=== PATIENT | male | born 1975 | race Caucasian/White ===

== ENCOUNTER 2023-01-24 09:13 | Emergency (ER) | payer BC, SELFPAY ==
[2023-01-24 09:23] VITALS: BP 121/94; PULSE 80; RESP 18; TEMP 36.5; O2SAT 95; BMI 27.3
--- NOTE | 2023-01-24 09:49 | ED.GENADULT ---
HPI - General Adult General Date Seen: 01/24/23 Chief complaint: Back Injury/Pain Stated complaint: Lower back pain Time Seen by Provider: 01/24/23 09:19 Source: patient Mode of arrival: ambulatory Limitations: no limitations History of Present Illness HPI narrative: Patient is a 47-year-old male who says he was tiling a bathroom in his home yesterday. He finished the job, and afterwards developed pain in his right low back. He has had pain like this once before, few years ago. He remembers going to be seen in the ER for that, he says it resolved on its own in a few days. He has never had imaging of his low back. He does not have pain that radiates into his leg but he does have some paresthesias or numbness in his right thigh, does not extend past his knee. He does say that the pain shoots up into his shoulder blade area on the right. He has not had any fevers or weight loss. He does not have any bowel or bladder changes. He has not taken any medications at home. He says he had difficulty sleeping because it hurts to lay down. He has difficulty going from sitting to standing due to pain. No true weakness. Related Data Home Medications Medication Instructions Recorded Confirmed fluticasone propionate 50 1 spray intranasal QDAY PRN 09/23/22 12/13/22 mcg/actuation nasal spray,suspension (Flonase Allergy Relief) Previous Rx's Medication Instructions Recorded fluconazole 100 mg tablet 100 mg PO QDAY #14 tabs 12/13/22 Allergies Allergy/AdvReac Type Severity Reaction Status Date / Time No Known Allergies Allergy Unknown Verified 12/13/22 15:23 Review of Systems Status of ROS: Reports: 6 or more systems reviewed and unremarkable except as noted in History and below [facility] Medical History Allergic rhinitis (07/11/07) Gastroesophageal reflux disease Tobacco abuse Surgical History History of hemorrhoidectomy (2016) History of nasal surgery (2017) Family History Mother Stroke Father High blood pressure Thyroid disease Social History Narrative: , no kids, smoker, social EtOH, construction Smoking Status: Current every day smoker How often do you have a drink containing alcohol: 2-4 times a month AUDIT-C Alcohol total score: 2 Non-prescribed substance use: denies use Little interest or pleasure in doing things: several days Feeling down, depressed, or hopeless: not at all Exam Narrative: Exam Narrative: Vital signs as noted above. In general, an alert, well-appearing patient. Sitting in a wheelchair. Head: Normocephalic, atraumatic. Eyes: Pupils are equal reactive. Extraocular movements are full. Conjunctivae are normal. ENT: Mucous membranes are moist. Throat is normal. Neck: Supple without lymphadenopathy. Heart: Regular rate and rhythm. No murmur or rub. Lungs: Clear bilaterally. No increased work of breathing, crackles or wheezes. Abdomen: Soft and nontender. No organomegaly. Back: Right lumbar tenderness. No erythema or rashes. Flexion significantly limited secondary to concern about pain. Extension to about 10?. Lateral movement preserved. Extremities: Well perfused. No edema. No calf tenderness. Pulses intact. Neurologic: Patient is alert and oriented to person and place. Speech is fluent. Face is symmetric. Moves all extremities equally. Strength is 5 5 in bilateral lower extremities. Sensation is intact to light touch. Affect: Normal. Skin: Warm and dry. Well perfused. Const: Vital Signs, click to edit/add: Vital Signs - 24 hr 01/24/23 09:23 Temperature 97.7 F Pulse Rate [Right Pulse Oximeter] 80 Respiratory Rate 18 Blood Pressure [Ri ght Upper Arm] 121/94 H Pulse Oximetry 95 Oxygen Delivery Me thod Room Air Documenting provider has reviewed patient's vital signs: yes Course Course Hospital Course: At this time, discussed that pain is likely due to muscular spasm, disc herniation not entirely ruled out. He does have some paresthesias in the right thigh although does not have true radicular symptoms. I do not think it is unreasonable to try a little prednisone in addition to ibuprofen/Tylenol and some Flexeril. I would start with conservative measures, and then have him follow up with primary care if not improving. Could consider imaging at that time. I do not see any need for imaging today, no red flags. If he worsens or has significant changes, return to the emergency department. Vital Signs Vital signs: Initial Vital Signs Temperature 97.7 F 01/24/23 09:23 Temperature Source Temporal Artery Scan 01/24/23 09:23 Pulse Rate 80 01/24/23 09:23 Respiratory Rate 18 01/24/23 09:23 Blood Pressure 121/94 H 01/24/23 09:23 Blood Pressure Mean 103 01/24/23 09:23 Blood Pressure Position Sitting 01/24/23 09:23 Pulse Oximetry 95 01/24/23 09:23 Oxygen Delivery Method 01/24/23 09:23 Vital Signs Temperature 97.7 F 01/24/23 09:23 Pulse Rate 80 01/24/23 09:23 Respiratory Rate 18 01/24/23 09:23 Blood Pressure 121/94 H 01/24/23 09:23 Pulse Oximetry 95 01/24/23 09:23 Oxygen Delivery Method 01/24/23 09:23 Temperature 97.7 F 01/24/23 09:23 Pulse Rate 80 01/24/23 09:23 Respiratory Rate 18 01/24/23 09:23 Blood Pressure 121/94 H 01/24/23 09:23 Pulse Oximetry 95 01/24/23 09:23 Oxygen Delivery Method 01/24/23 09:23 Discharge Plan Discharge Clinical Impression: Low back pain Patient Disposition: Home, Self-Care Condition: Stable Instructions: Acute Low Back Pain (ED) Additional Instructions: Ibuprofen 400 mg plus Tylenol 1000 mg 3 times daily with food for the next week or so. Prednisone as follows: 3 tabs daily for 3 days, then 2 tabs daily for 3 days, then 1 tab daily for 3 days. Muscle relaxer as needed. If not improving over the next few days, follow up with Dr. Fay for re-evaluation and possible imaging. Return to the emergency department at any time for acute worsening, severe uncontrolled pain, new symptoms such as weakness, bowel or bladder changes, fever, etc.. Prescriptions: No Action fluticasone propionate [Flonase Allergy Relief] 50 mcg/actuation spray,suspension 1 spray intranasal QDAY PRN Rx Instructions: administer into each nostril fluconazole 100 mg tablet 100 mg PO QDAY Qty: 14 0RF Follow Up/Referrals: Pedro Fay MD [Primary Care Provider] - Stand Alone Forms: [facility] Info Instructions
== END 2023-01-24 09:59 | disposition home or self-care (01) ==
PROVIDERS: Emergency Provider Emergency Medicine; PCP Family Medicine
DX: M54.59 Other low back pain (principal)
CPT/HCPCS: 99283; 99284

== ENCOUNTER 2024-07-19 06:58 | Outpatient (CLI) | payer BC, SELFPAY ==
--- OUTSIDE RECORDS SUMMARY | 2024-07-19 07:01 | XMS_ITS | Clinical Summary ---
Author Organization [facility] Address [place], [place] [address] Care Team Providers Care Acetone Recovery Worker Name Role Phone Pedro Fay MD Primary Care Provider + Allergies Active Allergy Reactions Criticality Noted Date Comments Homeopathic Products 03/08/2007 Medications Medication Sig Dispensed Refills Start Date End Date Status loratadine (CLARITIN ORAL) Take by mouth. Active azithromycin (ZITHROMAX Z-SHANNON) 250 mg tabletIndications:Nasal congestion Take 500 mg (2 tabs) by mouth on day 1, then 250 mg (1 tab) daily for days 2-5. 6 tablet 12/28/2019 Active ondansetron (ZOFRAN ODT) 8 mg disintegrating tabletIndications:Nause a Place 1 Tablet (8 mg) on the tongue every 8 hours if needed for Nausea/Vomiting . 15 Tablet 02/17/2022 Active omeprazole 20 mg tabletIndications:Gastr itis, presence of bleeding unspecified, unspecified chronicity, unspecified gastritis type Take 1 Tablet (20 mg) by mouth once daily before a meal. 50 Tablet 02/17/2022 Active ibuprofen (ADVIL; MOTRIN) 600 mg tabletIndications:Sprai n of right ankle, unspecified ligament, initial encounter,Acute right ankle pain Take 1 Tablet (600 mg) by mouth every 6 hours if needed for Pain. Maximum of 3200 mg in 24 hours. 25 Tablet 03/23/2024 Active Active Problems Problem Noted Date Diagnosed Date Allergic rhinitis, cause unspecified 07/11/2007 Acute serous otitis media 03/08/2007 Tobacco use disorder 03/08/2007 Immunizations Name Administration Dates Next Due COVID-19 vaccine (Lumexis 30mcg/0.3mL) CHATO Hilliard 03/04/2021 Tdap 12/31/2015 Family History Medical History Relation Name Comments Hypertension Father Good Health Mother Relation Name Status Comments Father Alive Mother Alive Social History Tobacco Use Types Packs/Day Years Used Date Smoking Tobacco: Every Day Cigarettes 1 7.8 Started: 09/14/2016 Smokeless Tobacco: Former Quit: 10/17/2016 Tobacco Cessation:Ready to Q uit: No; Counseling Given: Yes Comments:5 cigs per day Alcohol Use Standard Drinks/Week Comments Yes 0 (1 standard drink = 0.6 oz pur e alcohol) 1 per day Sex and Gender Information Value Date Recorded Sex Assigned at Not on file Gender Identity Not on file Sexual Orientation Not on file Obstetrics History Last Filed Vital Signs Vital Sign Reading Time Taken Comments Blood Pressure 134/91 03/23/2024 10:30 PM CDT Pulse 84 03/23/2024 10:45 PM CDT Temperature 36.7 ??C (98.1 ??F) 03/23/2024 9:56 PM CD T Respiratory Rate 16 03/23/2024 9:56 PM CDT Oxygen Saturation 94% 03/23/2024 10:45 PM CDT Inhaled Oxygen Concentration - - Weight 83.9 kg (185 lb) 03/23/2024 9:54 PM CDT Height 177.8 cm (5' 10) 03/23/2024 9:54 PM CDT Body Mass Index 26.54 03/23/2024 9:54 PM CDT Plan of Treatment Health Maintenance Due Date Last Done Comments Depression screening for age 12+ 1987 Hepatitis C screening for ag e 18-79 1993 Colonoscopy through age 75 2020 Lipids for age 45-75 2020 BMI (ht and wt on same day) for age 18+ 02/17/2023 02/17/2022, 08/29/2018, 09/01/2016 COVID-19 vaccine series ( season) 2024 06/05/2021, 03/04/2021 Influenza for age 9-49 07/15/2024 Tetanus booster 12/31/2025 12/31/2015 HIV for age 15-65 Completed 05/06/2014 Tdap Completed 12/31/2015 Pneumococcal series for age 6-64 Aged Out No longer eligible b ased on patient's age to complete this topic Procedures Procedure Name Priority Date/Time Associated Diagnosis Comments ANTI HIV 1/2 Routine 05/06/2014 3:55 PM CDT Exposure to STD from Last 3 Months or Most Recently Relevant to Health Maintenance Results * ANTI HIV 1/2 (05/06/2014 3:55 PM CDT) HIV-1/HIV-2 ANTIBODY Non-Reacti ve Non-Reacti ve 05/07/2014 5:17 PM CDT [facility] Blood specimen (specimen) BLOOD SPECIMEN / Unknown Venipuncture / Unknown 05/06/2014 3:55 PM CDT 05/06/2014 3:56 PM CDT Narrative [facility] - 05/07/2014 5:17 PM CDT HIV-1 p24 and HIV-1/HIV-2 Ab not detected Alex Yancey MD [facility] [address] [place] [address], from Last 3 Months or Most Recently Relevant to Health Maintenance Advance Directives * Full Code (Latest Code Status on File) Date Activated Date Inactivated Comments 10/21/2016 9:12 AM 10/21/2016 2:12 PM * Full Code Date Activated Date Inactivated Comments 10/21/2016 6:22 AM 10/21/2016 9:12 AM Care Teams Acetone Recovery Worker Relationship Specialty Start Date End Date Pedro Fay MD [address] [place] [id number] PCP - General Family Practice 02/19/22
--- NOTE | 2024-07-19 07:15 | CRLHL7_ITS ---
For Patients: As a result of the Cures Act, medical imaging exams and procedure reports are released immediately into your electronic medical record. You may view this report before your referring provider. If you have questions, please contact your health care provider. INDICATION: Low back pain. TECHNIQUE: Noncontrast sagittal and axial T1, T2, and sagittal STIR sequences are provided. Compared to prior study from April 15, 2023. FINDINGS: The overall stature, alignment and intrinsic marrow signal of the lumbar spine is within normal limits. Conus is normal. L1-2, L2-3: Unremarkable. L3-4, L4-5: Stable minimal broad-based posterior disc bulge results in no central canal or foraminal narrowing. L5-S1 worsening left posterior paracentral disc protrusion now extends 4-5 millimeters beyond the posterior vertebral body margin resulting in greater compression of the traversing left S1 nerve root. No central canal or foraminal narrowing. IMPRESSION: 1. Worsening left posterior paracentral disc protrusion at L5-S1 resulting in greater compression of the traversing left S1 nerve root. 2. Milder degenerative changes within the remainder of the lumbar spine as outlined above. Dictated by Jasvir No MD @ 07/19/2024 2:48:29 PM (Electronically Signed)
== END 2024-07-19 06:59 | disposition home or self-care (01) ==
LOC: MRI 06:59
PROVIDERS: PCP Family Medicine; Visit Provider Family Medicine
DX: M54.50 Low back pain, unspecified (principal); M51.27 Other intervertebral disc displacement, lumbosacral region; M54.16 Radiculopathy, lumbar region
CPT/HCPCS: 72148

== ENCOUNTER 2024-09-17 10:59 | Outpatient (CLI) | payer BC, SELFPAY ==
--- OUTSIDE RECORDS SUMMARY | 2024-09-17 11:04 | XMS_ITS | Clinical Summary ---
Author Organization [facility] [employer] [facility] Address [place], [place] [address] Care Team Providers Care Gate Operator Name Role Phone Pedro Fay MD Primary Care Provider + Allergies Active Allergy Reactions Criticality Noted Date Comments Homeopathic Products 03/08/2007 Medications Medication Sig Dispensed Refills Start Date End Date Status loratadine (CLARITIN ORAL) Take by mouth. Active ibuprofen (ADVIL; MOTRIN) 600 mg tabletIndications:Spr ain of right ankle, unspecified ligament, initial encounter,Acute right ankle pain Take 1 Tablet (600 mg) by mouth every 6 hours if needed for Pain. Maximum of 3200 mg in 24 hours. 25 Tablet 03/23/2024 Active oxyCODONE (ROXICODONE) 5 mg immediate release tablet Take 5 mg by mouth every 6 hours if needed for Pain. 07/09/2024 Active Active Problems Problem Noted Date Diagnosed Date Allergic rhinitis, cause unspecified 07/11/2007 Acute serous otitis media 03/08/2007 Tobacco use disorder 03/08/2007 Encounters Date Type Department Care Team Description 09/11/2024 11:10 AM CDT Office Visit [facility] [address] [place] [address] Todd Garrido MD Musculoskeletal Problem (Follow-up SP / Done at [facility] 08/09/2024/Done at [facility] 09/04/2024 was last SP) 09/11/2024 Travel 08/22/2024 3:30 PM CDT Ancillary Procedure [facility] [address] [place] [address] 08/22/2024 Travel 2024 Orders Only [facility] [address] [place] [address] Flako Lopes MD <No scans attached> 07/24/2024 1:50 PM CDT Office Visit [facility] [address] [facility] [address] Todd Garrido MD Musculoskeletal Problem (Consultation for Low Back Pain/Referral from [facility]/Injured x 1 1/2 years. Re-injured 07/05/2024) 07/24/2024 Telephone [facility] [address] [place] [address] Mart Keller MD Error-please disregard 07/24/2024 Travel 07/19/2024 Orders Only [facility] Scanner 1 scan: (1-Ord) [facility], MR LUMBAR SPINE WO CON, 07/19/2024 from Last 3 Months Immunizations Name Administration Dates Next Due COVID-19 vaccine (SCL 30mcg/0.3mL) CHATO Hilliard 03/04/2021 Tdap 12/31/2015 Family History Medical History Relation Name Comments Hypertension Father Good Health Mother Relation Name Status Comments Father Alive Mother Alive Social History Tobacco Use Types Packs/Day Years Used Date Smoking Tobacco: Every Day Cigarettes 1 8 Started: 09/14/2016 Smokeless Tobacco: Former Quit: 10/17/2016 [...] Sign Reading Time Taken Comments Blood Pressure 123/84 09/11/2024 11:35 AM CDT Pulse 78 09/11/2024 11:35 AM CDT Temperature 36.7 ??C (98.1 ??F) 03/23/2024 9:56 PM CD T Respiratory Rate 16 03/23/2024 9:56 PM CDT Oxygen Saturation 96% 09/11/2024 11:35 AM CDT Inhaled Oxygen Concentration - - Weight 86.4 kg (190 lb 8 oz) 09/11/2024 11:35 AM CDT Height 177.8 cm (5' 10) 03/23/2024 9:54 PM CDT Body Mass Index 27.33 03/23/2024 9:54 PM CDT Plan of Treatment Health Maintenance Due Date Last Done Comments Pneumococcal series for age 6-64 (1 of 2 - PCV) 1981 Depression screening for age 12+ 1987 Hepatitis C screening for age 18-79 1993 Colonoscopy through age 75 2020 Lipids for age 45-75 2020 BMI (ht and wt on same day) for age 18+ 02/17/2023 02/17/2022, 08/29/2018, 09/01/2016 COVID-19 vaccine series ( season) 2024 06/05/2021, 03/04/2021 Influenza for age 9-49 07/15/2024 Tetanus booster 12/31/2025 12/31/2015 HIV for age 15-65 Completed 05/06/2014 Tdap Completed 12/31/2015 Procedures Procedure Name Priority Date/Time Associated Diagnosis Comments XR SPINE LUMBAR MINIMUM 4 VIEWS Routine 08/22/2024 3:54 PM CDT Pain of lumbar spine SCAN-MRI INTERPRETATION 07/19/20 24 12:00 AM CDT ANTI HIV 1/2 Routine 05/06/2014 3:55 PM CDT Exposure to STD from Last 3 Months or Most Recently Relevant to Health Maintenance Results * XR SPINE LUMBAR MINIMUM 4 VIEWS (08/22/2024 3:54 PM CDT) Anatomical Region Laterality Modality Spine, LUMBAR SPINE Digital Radi ography 08/22/2024 3:54 PM CDT Impressions 08/23/2024 10:10 AM CDT 5 lumbar type vertebrae. 10 degrees of dextrocurvature from L1 to L4. 4.2 mm retrolisthesis of L3 on L4 on neutral, becomes 3.5 mm on extension, becomes 1 mm with flexion. 2 mm retrolisthesis of L4 on L5 on neutral, does not change between flexion and extension. Vertebral body heights are maintained. No pars defects. Mild intervertebral disc height loss and mild facet arthropathy at L4-L5 and L5-S1. Mild endplate spurring throughout the lumbar spine and lower thoracic spine. The visualized bony pelvis grossly within normal limits. Narrative 08/23/2024 10:10 AM CDT For Patients: As a result of the Cures Act, medical imaging exams and procedure reports are released immediately into your electronic medical record. You may view this report before your referring provider. If you have questions, please contact your health care provider. EXAM: XR SPINE LUMBAR MINIMUM 4 VIEWS LOCATION: [facility] DATE: 08/22/2024 INDICATION: Pain Of Lumbar Spine COMPARISON: Lumbar spine MRI 07/19/2024 Procedure Note Hamida Donnelly MD - 08/23/2024 For Patients: As a result of the Cures Act, medical imagingexams and procedure reports are released immediately into your electronicmedical record. You may view this report before your referring provider.If you have questions, please contact your health care provider. EXAM: XR SPINE LUMBAR MINIMUM 4 VIEWS LOCATION: [facility] DATE: 08/22/2024 INDICATION: Pain Of Lumbar Spine COMPARISON: Lumbar spine MRI 07/19/2024 IMPRESSION: 5 lumbar type vertebrae. 10 degrees of dextrocurvature from L1 to L4. 4.2mm retrolisthesis of L3 on L4 on neutral, becomes 3.5 mm on extension,becomes 1 mm with flexion. 2 mm retrolisthesis of L4 on L5 on neutral,does not change between flexion and extension. Vertebral body heights aremaintained. No pars defects. Mild intervertebral disc height loss and mildfacet arthropathy at L4-L5 and L5-S1. Mild endplate spurring throughoutthe lumbar spine and lower thoracic spine. The visualized bony pelvisgrossly within normal limits. Flako Lopes MD GENERAL IMAGING * SCAN-MRI INTERPRETATION (07/19/2024 12:00 AM CDT) Anatomical Region Laterality Modality Other Scanner OTHER * ANTI HIV 1/2 (05/06/2014 3:55 PM CDT) HIV-1/HIV-2 ANTIBODY Non-Reacti ve Non-Reacti ve 05/07/2014 5:17 PM CDT [facility] Blood specimen (specimen) BLOOD SPECIMEN / Unknown Venipuncture / Unknown 05/06/2014 3:55 PM CDT 05/06/2014 3:56 PM CDT Narrative [facility] - 05/07/2014 5:17 PM CDT HIV-1 p24 and HIV-1/HIV-2 Ab not detected Alex Yancey MD S[facility] [address] [place] [address], from Last 3 Months or Most Recently Relevant to Health Maintenance Advance Directives * Full Code (Latest Code Status on File) Date Activated Date Inactivated Comments 10/21/2016 9:12 AM 10/21/2016 2:12 PM * Full Code Date Activated Date Inactivated Comments 10/21/2016 6:22 AM 10/21/2016 9:12 AM Care Teams Gate Operator Relationship Specialty Start Date End Date Pedro Fay MD [address] [place] [address] PCP - General Family Practice 02/19/22
--- OUTSIDE RECORDS SUMMARY | 2024-09-17 11:04 | XMS_ITS | Continuity of Care Document ---
Author Organization [facility] Address [address] [place] [address] Phone Care Team Providers Care Revenue Stamper Name Role Phone Marianne CARLOS, PhD, Flako Unavailable Unavai lable Allergies, Adverse Reactions, Alerts Substance Reaction Status Criticality No Known Allergies Active No Inform ation Medications Medication Instructions Dosage Effective Dates (start - stop) Status Comments OXYCODONE HCL (unknown strength) Not Available - Active Procedures Procedure Date Office/Outpatient Visit,[facility] Advance Directives Directive Yes / No Effective Date File Name No Information Encounters Encounter Description Practice Location Reason(s) For Visit Diagnoses Date Provider Providers Copied on Encounter [facility], [address], [place], [place], [id number], [place] tel:[phone] [facility] [place] No Information Marianne Arriola. [facility], [address], [place], [address], [place]. tel:[phone] Office/Outpat ient Visit,[facility] [place], [address], [place], [place], [id number], [place] tel:[phone] [facility] - [facility] Spinal stenosis, lumbosacral region Marianne Arriola. [facility] [place], [address], [place], [address], [place]. tel:[phone] Referring Provider: Pedro Fay, [facility] [address] [place], [address]. tel:[phone] Family History Family Member Type Diagnosis Age At Onset No Information Payers Payer name Insurance type Covered republican ID Suni moore(s) [facility] [id number] [facility] [id number] Social History Type Description Quantity Date Captured Comments Alcohol Use Details Unknown Caffeine Use Details Unknown Tobacco Use Status Smoking Status No Information Sex Male Chief Complaint And Reason For Visit No Information Reason For Referral Reason For Referral No Information Plan Of Treatment Date Type Action Status Appointment Chano Trevino BOOKED History Of Present Illness Encounter Date Complaint History Of Prese nt Illness No Information Functional Status Date Functional Assessmen t No Information Instructions Date Instruction Additional Infor mation No Information Assessments Type Assessment Date No Information Patient Care Teams Name Effective Dates (start - stop) Status Members No Information
== END 2024-09-17 11:00 | disposition home or self-care (01) ==
PROVIDERS: PCP Family Medicine; Visit Provider Family Medicine
DX: Z01.818 Encounter for other preprocedural examination (principal); E78.2 Mixed hyperlipidemia; Z13.6 Encounter for screening for cardiovascular disorders
CPT/HCPCS: 80048; 80061; 85025

== ENCOUNTER 2024-10-18 09:54 | Outpatient (CLI) | payer BC, SELFPAY ==
--- OUTSIDE RECORDS SUMMARY | 2024-10-18 09:57 | XMS_ITS | Clinical Summary ---
Author Organization [facility] Address [place], [place] [address] Care Team Providers Care Director Of Market Analysis Name Role Phone Pedro Fay MD Primary [...] Description 09/11/2024 11:10 AM CDT Office Visit [facility] [address] [place] [address] Todd Garrido MD Musculoskeletal Problem (Follow-up SP / Done at [facility] 08/09/2024/Done at [facility] 09/04/2024 was last SP) 09/11/2024 Travel 08/22/2024 3:30 PM CDT Ancillary Procedure [facility] [address] [place] [address] 08/22/2024 Travel 2024 Orders Only [facility] [address] [place] [address] Flako Lopes MD <No scans attached> 07/24/2024 1:50 PM CDT Office [facility] [address] [facility] [address] Todd Garrido MD Musculoskeletal Problem (Consultation for Low Back Pain/Referral from [facility]/Injured x 1 1/2 years. Re-injured 07/05/2024) 07/24/2024 Telephone [facility] [address] [place] [address] Mart Keller MD Error-please disregard 07/24/2024 Travel 07/19/2024 Orders Only [facility] Scanner 1 scan: (1-Ord) [facility], MR LUMBAR SPINE WO CON, 07/19/2024 from Last 3 Months Immunizations Name Administration Dates Next Due COVID-19 vaccine (Kinematix 30mcg/0.3mL) CHATO Hilliard 03/04/2021 Tdap 12/31/2015 Family History Medical History Relation Name Comments Hypertension Father Good Health Mother Relation Name Status Comments Father Alive Mother Alive Social History Tobacco Use Types Packs/Day Years Used Date Smoking Tobacco: Every Day Cigarettes 1 8.1 Started: 09/14/2016 Smokeless Tobacco: Former Quit: 10/17/2016 [...] 78 09/11/2024 11:35 AM CDT Temperature 36.7 C (98.1 F) 03/23/2024 9:56 PM CDT Respiratory Rate 16 03/23/2024 9:56 PM CDT [...] 02/17/2023 02/17/2022, 08/29/2018, 09/01/2016 COVID-19 vaccine series (2023- season) 2024 06/05/2021, 03/04/2021 Influenza for age [...] XR SPINE LUMBAR MINIMUM 4 VIEWS LOCATION: [facility] DATE: 08/22/2024 INDICATION: Pain Of Lumbar [...] XR SPINE LUMBAR MINIMUM 4 VIEWS LOCATION: [facility] DATE: 08/22/2024 INDICATION: Pain Of Lumbar [...] visualized bony pelvisgrossly within normal limits. Flako Lopse MD GENERAL IMAGING * SCAN-MRI INTERPRETATION (07/19/2024 12:00 AM CDT) Anatomical Region Laterality Modality Other Scanner OTHER * ANTI HIV 1/2 (05/06/2014 3:55 PM CDT) HIV-1/HIV-2 ANTIBODY Non-Reacti ve Non-Reacti ve 05/07/2014 5:17 PM CDT [facility] Blood specimen (specimen) BLOOD SPECIMEN / Unknown Venipuncture / Unknown 05/06/2014 3:55 PM CDT 05/06/2014 3:56 PM CDT Narrative [facility] - 05/07/2014 5:17 PM CDT HIV-1 p24 and HIV-1/HIV-2 Ab not detected Alex Yancey MD SEND OUTS [facility] [address] [place] [address], from Last 3 Months or Most Recently Relevant to Health Maintenance Advance Directives * Full Code (Latest Code Status on File) Date Activated Date Inactivated Comments 10/21/2016 9:12 AM 10/21/2016 2:12 PM * Full Code Date Activated Date Inactivated Comments 10/21/2016 6:22 AM 10/21/2016 9:12 AM Care Teams Director Of Market Analysis Relationship Specialty Start Date End Date Pedro Fay MD [address] [place] [address] PCP - General Family Practice 02/19/22
--- OUTSIDE RECORDS SUMMARY | 2024-10-18 09:57 | XMS_ITS | Continuity of Care Document ---
Author Organization [facility] Address [address] [place] [address] Phone Care Team Providers Care Mechanical Fitter Name Role Phone Marianne CARLOS, PhD, Flako Unavailable Unavai lable Allergies, Adverse Reactions, Alerts Substance Reaction Status Criticality No Known Allergies Active No Inform ation Medications Medication Instructions Dosage Effective Dates (start - stop) Status Comments OXYCODONE HCL (unknown strength) Not Available - Active Procedures Procedure Date Office/Outpatient Visit,Est, Mod 2023 Office/Outpatient Visit,New, Mod 2023 Advance Directives Directive Yes / No Effective Date File Name No Information Encounters Encounter Description Practice Location Reason(s) For Visit Diagnoses Date Provider Providers Copied on Encounter Office/Outpat ient Visit,Est, Mod [facility], [address], [place], [place], [id number], [place] tel:[phone] [facility] [place] Spinal stenosis, lumbosacral region Marianne Arriola. [facility], [address], [place], [address], [place]. tel:[phone] Referring Provider: Pedro Fay, [facility] [address] [place], [address]. tel:[phone] Office/Outpat ient Visit,New, Mod [facility], [address], [place], [place], [id number], [place] tel:[phone] [facility] Spinal stenosis, lumbosacral region Marianne Arriola. [facility], [address], [place], [address], [place]. tel:[phone] Referring Provider: Pedro Fay, [facility] [address], [address]. tel:[phone] Family History Family Member Type Diagnosis Age At Onset No Information Payers Payer name Insurance type Covered constitution party [place] [id number] [facility] [id number] Social History Type Description Quantity Date Captured Comments Alcohol Use Details Unknown Caffeine Use Details Unknown Tobacco Use Status Occasional cigarette smoker Smoking Status Heavy tobacco smoker Smoking Tobacco Use Details Cigarette: No Details Available Cigarette: 1 Packs per day Sex Male Vital Signs Date / Time: Height Weight BMI Pulse Rate Blood Pressure Temperature Respiratory Rate Body Surface Area Head Circumference Head Circ. Percentile Wt./Carl. Percentile BMI percentile Pulse Ox Inhaled Ox 8:57 AM 68.50 in 85.729 kg (189.00 lbs) 28.3 2 kg/m eter (2) Chief Complaint And Reason For Visit No Information Reason For Referral Reason For Referral No Information Plan Of Treatment Date Type Action Status Future Order: Radiology Order Pa in Mgmt Consult (PAIN), Ordered on: Ordered Future Order: Radiology Order Ep idural Steroid Lumbar (EPIDURALLUM), Ordered on: Ordered History Of Present Illness Encounter Date Complaint History Of Prese nt Illness No Information Functional Status Date Functional Assessmen t No Information Instructions Date Instruction Additional Infor mation No Information Assessments Type Assessment Date No Information Patient Care Teams Name Effective Dates (start - stop) Status Members No Information
--- NOTE | 2024-10-18 11:37 | W.ANESCHARGE ---
Anesthesia Charges Start Date/Time Anesthesia Start Date: 10/18/24 Anesthesia Start Time: 11:05 Stop Date/Time Anesthesia Stop Date: 10/18/24 Anesthesia Stop Time: 11:36
--- NOTE | 2024-10-18 11:48 | W.ANESCHARGE ---
Anesthesia Charges Start Date/Time Anesthesia Start Date: 10/18/24 Anesthesia Start Time: 11:05 Stop Date/Time Anesthesia Stop Date: 10/18/24 Anesthesia Stop Time: 11:36
== END 2024-10-18 09:55 | disposition home or self-care (01) ==
LOC: OP CLINIC 09:55
PROVIDERS: PCP Family Medicine; Visit Provider Surgery
DX: Z12.11 Encounter for screening for malignant neoplasm of colon (principal); D12.2 Benign neoplasm of ascending colon; D12.3 Benign neoplasm of transverse colon
CPT/HCPCS: 00811; 45385; 88305; J2704